=== PATIENT | female | born 1945 | race Caucasian/White ===

== ENCOUNTER 2019-04-02 11:35 | Inpatient (IN) | payer MEDICARE ==
[2019-04-02] MEDS ORDERED: Magnesium 2 GM/50 ML BAG (IN WATER) ONE (12:05)
[2019-04-02] MEDS ORDERED: Senokot S 8.6-50 MG TAB PO PRN (12:34)
[2019-04-02] MEDS ORDERED: Acetaminophen 325 MG TAB PO PRN (12:34)
[2019-04-02] MEDS ORDERED: Calcium Carbonate 500 MG ChewTAB PO PRN (12:34)
[2019-04-02] MEDS ORDERED: Guaifenesin DM 100-10/5 ML UDCUP PO PRN (12:34)
[2019-04-02] MEDS ORDERED: Bisacodyl 10 MG SUPP PR PRN (12:34)
--- NOTE | 2019-04-02 13:09 | HP ---
REASON FOR ADMISSION: Chronic obstructive pulmonary disease exacerbation, severe hyponatremia, and generalized weakness. HISTORY OF PRESENTING ILLNESS: The patient gives history of feeling weak from last one week or so. She has also developed shortness of breath which has been progressively getting worse from one week. This morning when she got up, she felt very weak and bad. She had wheezing in the morning. She could not eat at all. She has not vomited, but has severe loss for appetite. The patient says she had gone to see Dr. Barillas, last week for similar symptoms and got a shot of steroids in her office along with Bactrim. The patient says this has not helped much. PAST MEDICAL AND SURGICAL HISTORY: History of COPD, dyslipidemia, depression, cataract surgery, cholecystectomy, tubal ligation, left arm ORIF, gastroesophageal reflux disease, prior colonoscopy with removal of tubular polyps, and tobacco abuse. CURRENT MEDICATIONS: The patient takes, 1. Nexium 40 mg p.o. daily. 2. Albuterol nebulizer q.6 hourly p.r.n. 3. Lisinopril 20 mg p.o. daily. 4. Aspirin 81 mg p.o. daily. 5. Escitalopram 10 mg daily. 6. Atorvastatin 20 mg daily. 7. Bactrim Double Strength one tablet twice daily from 03/27/2019. 8. Anoro Ellipta inhaler daily. ALLERGIES: ALLERGIC TO CODEINE AND PENICILLIN. PERSONAL HISTORY: Smokes one and half pack daily. Does not abuse alcohol or drugs. Lives with her son and [id number]. FAMILY HISTORY: Mother of emphysema and its complications at the age of 75. Father lived up to 93 and of natural causes. CODE STATUS: Full. Power of racing secretary and handicapper is her daughter, Ms. Adhikari. Number to reach Ms. Adhikari is #[phone]. REVIEW OF SYSTEMS: CONSTITUTIONAL: Negative for weight loss or gain, ability to conduct usual activities. SKIN: Negative for rash, itching. EYES: Negative for double vision, pain. ENT/MOUTH: Negative for nose bleeding, neck stiffness, pain, tenderness. CARDIOVASCULAR: Negative for palpitations, dyspnea on exertion, orthopnea. RESPIRATORY: Negative for shortness of breath, wheezing, cough, hemoptysis, fever or night sweats. GASTROINTESTINAL: Negative for poor appetite, abdominal pain, heartburn, nausea , vomiting, constipation, or diarrhea. GENITOURINARY: Negative for urgency, frequency, dysuria, nocturia. MUSCULOSKELETAL: Negative for pain, swelling. NEUROLOGIC/PSYCHIATRIC: Negative for anxiety, depression. ALLERGY/IMMUNOLOGIC: Negative for skin rash, bleeding tendency. PHYSICAL EXAMINATION: GENERAL: The patient is a 74-year-old female, who is currently not in acute distress at present after receiving multiple nebulization at [facility] and here. VITAL SIGNS: Blood pressure on arrival at [facility] was 184/118, currently 136/ 92, pulse 72 per minute, respiratory rate 20 per minute, temperature 98.3 degrees Fahrenheit, and was initially saturating at 84% on room air and is currently 94 % on 2 L nasal cannula. NECK: Supple. No elevated JVD. HEENT: Eyes; extraocular muscles are intact. Pupils are reacting to light. Oral cavity, mucous membranes are moist. No exudates or congestion. CARDIOVASCULAR SYSTEM: S1 and S2 heard. Regular rhythm. RESPIRATORY SYSTEM: Air entry, 1+ bilateral. Scattered wheezes plus bilateral. ABDOMEN: Soft. Bowel sounds heard. No tenderness, rigidity, or guarding. EXTREMITIES: No peripheral edema or calf tenderness. VASCULAR SYSTEM: Peripheral pulses 1+ bilateral. No ischemic ulcerations or gangrene. CENTRAL NERVOUS SYSTEM: No gross focal deficits noted. The patient is alert, awake, and oriented well. PSYCHIATRIC SYSTEM: The patient's mood is euthymic. No hallucinations or delusions. LABORATORY DATA: EKG done shows normal sinus rhythm at 80 beats per minute, signs of LVH seen. White count of 6, H and H of 13 and 41, platelet count 239, MCV is 81 with 70% neutrophils. Sodium 118, potassium 5.9, chloride 83, serum bicarb is 24, BUN 11, creatinine 0.9, serum glucose 96. Liver enzymes within normal limits. Albumin is 4.5. Troponin I 0.02. BNP 96. Chest x-ray read by Radiology shows mild cardiomegaly. No lobar consolidation or pneumothorax or effusions. CLINICAL IMPRESSION AND PLAN: The patient will be admitted to medical floor for chronic obstructive pulmonary disease exacerbation, severe hyponatremia with generalized weakness. She will be on DuoNeb and steroids along with empiric Levaquin. We will obtain serum and urine osmolalities, urine electrolytes, TSH, uric acid, and a CT chest without contrast to rule out mass in view of hyponatremia and heavy smoking. We will also consult Dr. Tate, who is on-call for Nephrology for severe hyponatremia. We will continue aspirin, Lipitor, escitalopram, Anoro Ellipta, and lisinopril as before. If her hyponatremia gets worse, we will discontinue her escitalopram. We will also give her Ensure one can three times daily. We will request pulmonary consultation depending on her progress here. Job ID: [id number] MTDD
[2019-04-02] MEDS ORDERED: methylPREDNISolone Sod Succ 40 MG VIAL IVP SCH (14:00)
--- NOTE | 2019-04-02 14:43 | CT ---
CT OF THE CHEST WITHOUT CONTRAST: COMPARISON: None. HISTORY: COPD exacerbation with shortness of breath. Heavy smoker. Hyponatremia. TECHNIQUE: Multiple contiguous axial images were obtained in a CT of the chest without contrast. Coronal reform ats were performed. FINDINGS: Atelectasis is seen in the right middle lobe. No focal mass is seen. No suspicious infiltrates are seen. No pneumothorax or pleural effusion is seen. The heart is at upper limits of normal in size. Calcifications are seen in the coronary arteries and aorta. No hilar or mediastinal lymphadenopathy appreciated on this limited noncontrast examination. The patient is status post cholecystectomy. The visualized subdiaphragmatic structures are unremarka ble. Degenerative changes are seen in the spine. The chest wall soft tissues are unremarkable. IMPRESSION: Right middle lobe atelectasis. POS: [facility]
[2019-04-02 14:53] LABS: Thyroid Stimulating Hormone 0.5851 uIU/mL (0.35-4.94)
[2019-04-02 16:58] VITALS: BMI 31.6
[2019-04-02] MEDS: methylPREDNISolone Sod Succ 40 MG VIAL IVP SCH (17:08)
[2019-04-02 17:14] LABS: Potassium, Urine 30.6 mmol/L
[2019-04-02 18:19] LABS: Anion Gap 13 mmol/L (10-20); BUN (Urea Nitrogen) 13 mg/dL (9.8-20.1); Calc. Creatinine Clearance 81 mL/min (70-130); Carbon Dioxide 22 mmol/L (23-31); Chloride 85 mmol/L (98-107); Estimated GFR-MDRD 62; Glucose 141 mg/dL (83-110); Potassium 5.2 mmol/L (3.5-5.1)
[2019-04-02 18:23] LABS: Troponin I Less than 0.010 ng/mL (< 0.028)
[2019-04-02 18:25] LABS: Sodium 115 mmol/L (136-145)
--- NOTE | 2019-04-02 19:07 | CON ---
DATE OF CONSULTATION: 04/02/2019 CONSULTING PHYSICIAN: Jesusita Godwin MD. REASON FOR CONSULTATION: Hyponatremia and hyperkalemia. HISTORY OF PRESENT ILLNESS: A 74-year-old female with COPD, on home oxygen, who continues to smoke, who presented to [place] [facility] due to worsening shortness of breath as well as left-sided chest pain. The patient reported worsening shortness of breath and generalized weakness as well as ill feeling, multiple episodes of emesis, and left-sided chest pain, which resolved by the time she presented to the [place] [facility]. The patient was treated with DuoNeb and IV fluids. Further evaluation showed hyperkalemia and hyponatremia, and she was subsequently transferred over here through the ER for further evaluation and treatment. Initial troponin done at [facility] was unremarkable, and EKG showed normal sinus rhythm with no obvious ischemic changes. The patient reported having several episodes of emesis about 6 to 7 times yesterday and also had left-sided chest pain last night, which has resolved. She also complained of diffuse abdominal pain yesterday, which has also resolved at this time. Of note, the patient was seen by the primary care physician on March 27, for respiratory problem, thought to be COPD exacerbation and was treated with steroid shot followed by Bactrim, which she has been taking since then until prior to presentation. She denied diarrheal illness or leg swelling, but admitted to palpitation and some dysuria. She also reported body aches and pains, especially both thighs. In the ER here, the patient was further evaluated with a repeat EKG, which again was negative for features of hyperkalemia or ischemic changes. PAST MEDICAL HISTORY: 1. Chronic respiratory failure, on home oxygen. 2. COPD. 3. Dyslipidemia. 4. Depression. 5. Gastroesophageal reflux disease. 6. Chronic tobacco abuse disorder. PAST SURGICAL HISTORY: 1. Cholecystectomy. 2. Tubal ligation. 3. Left wrist open reduction and internal fixation. 4. Cataract surgery. 5. Prior colonoscopy with tubular polyps removal. FAMILY HISTORY: Mother of emphysema. Father also had multiple medical problems, which she does not really know, but he at age 93. SOCIAL HISTORY: The patient lives with son and [id number]. She smokes a pack and a half daily since age 14. Denies alcohol or recreational drug use. ALLERGIES: 1. CODEINE. 2. PENICILLIN. MEDICATIONS: Prior to hospital medications: 1. Lipitor 20 mg p.o. daily. 2. Nexium 40 mg p.o. daily. 3. Mylanta 125 mg daily p.r.n. 4. Albuterol sulfate 2.5 mg/3 mL nebulization q.4 p.r.n. for shortness of breath. 5. Lexapro 10 mg p.o. daily. 6. Lisinopril 2.5 mg p.o. daily. 7. Anoro 62.5 mcg/25 mcg 1 inhalation daily. 8. Bactrim 1 tablet daily. REVIEW OF SYSTEMS: A 12-point review of systems performed was negative other than pertinent positives and negatives included in the history of present illness. PHYSICAL EXAMINATION: VITAL SIGNS: Most current vitals showed temperature 98.5, pulse 87, respiratory rate 22, SpO2 of 97 on 2 L nasal cannula, blood pressure is 158/76. GENERAL: Elderly female, fatigued, in mild respiratory distress. Afebrile. Anicteric. Acyanotic. HEENT: Normocephalic and atraumatic. Pupils are equal and reacting to light. Lips are dry with some excoriations. Tongue is moist. NECK: Supple and nontender with full range of motion. No obvious masses or lymphadenopathy appreciated. CARDIOVASCULAR: Regular rhythm and rate with normal heart sounds 1 and 2. No obvious murmur was appreciated. RESPIRATORY: Fair air entry bilaterally with harsh breath sounds as well as scattered transmitted sounds. Few scattered rhonchi were appreciated. Work of breathing is mildly increased. GI: Abdomen is full, soft, nontender, and nondistended with normal bowel sounds. EXTREMITIES: Grossly normal looking, atraumatic, with no obvious edema, erythema, or cyanosis. NEUROLOGIC: Conscious and alert, oriented x3 with appropriate mental status. Cranial nerves 2 through 12 are intact. The patient moves all extremities. PSYCHIATRIC: The patient has normal affect with euthymic mood. There are no hallucinations. She seems cooperative with appropriate mental status. DIAGNOSTIC DATA: CBC performed today at [facility] showed WBC count of 6.7, hemoglobin of 13.3, MCV of 81.8, and platelet of 239. CMP performed at [facility] at 08:25 a.m., showed sodium 118, potassium 5.9, chloride 83, CO2 of 24, anion gap 17, BUN 11, creatinine 0.94, glucose 96, calcium 9.5, total bilirubin 0.5, AST 32, ALT 20, alkaline phosphatase 83, total protein 7.5, albumin 4.5, globulin 3.0. Lactic acid 0.7. Uric acid 5.6. BNP 96.6. TSH 0.585. Initial troponin at [facility] was 0.022. Urinalysis showed yellow urine with pH of 6.0; specific gravity of 1.015; trace protein, ketone, blood, small bilirubin, and leukocyte esterase. Nitrites and glucose were negative. Microscopy showed 0 to 3 rbc's and wbc's as well as squamous cells with rare bacteria. Urine sodium was 32, and urine potassium 30.6. EKG: Initial EKG performed at [facility] showed normal sinus rhythm with rate of 62 with no ischemic changes. Features of LVH were noted. Repeat EKG here showed normal sinus rhythm with rate of 80 and no ischemic changes. Again, LVH criteria were noted. Chest x-ray performed earlier today showed expanded lungs without lobar consolidation, pneumothorax, russell pneumonia, edema, or pleural effusion. CT scan of the chest without contrast showed right middle lobe atelectasis. Again, no pneumothorax or pleural effusion was noted. ASSESSMENT: 1. Moderate hyponatremia: Etiology is unclear. The patient with chronic long-standing COPD is at increased risk of syndrome of inappropriate antidiuretic hormone secretion. The patient also may have appropriate ADH secretion in the face of volume depletion given recent poor oral intake and emesis. Review of medical record showed that the patient had normal sodium in April 2018. There is no recent BMP available at this time. There is no overt neurological deficit or symptom. 2. Hyperkalemia: This most likely is related to medication. The patient is on lisinopril and recently started on Bactrim. EKG was negative for acute changes related to hyperkalemia. 3. Volume status: The patient seems euvolemic. 4. [id number] COPD: Deferred to primary attending. 5. Chronic tobacco abuse disorder. 6. Hypertension: Control is suboptimal. PLAN: 1. We get repeat BMP. 2. We will also get urine osmolality as well as serum osmolality and urine sodium. 3. We will hold lisinopril at this time. 4. If repeat BMP showed hyperkalemia, it will be addressed medically with Kayexalate. 5. Given the patient received some normal saline, we will await repeat BMP to decide on the course of action for hyponatremia given that the patient is asymptomatic at this time and there is no immediate need of correction. Many thanks for involving us in the care of this patient. We will follow along with you. Further recommendation to follow depending on hospital course. Addendum Repeat BMP reviewed. Showed acute drop in serum sodium from 118 to 115. K is down to 5.2 Plasma osmolality came back low at 144. Impression. 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 Acute drop in sodium being due to NS infusion recieved earlier. Plan Start fluid restriction. Give 1oo cc of 3% Saline. Recheck K in the morning. Job ID: [id number] MTDD
[2019-04-02] MEDS: Famotidine 20 MG TAB PO SCH (20:08)
[2019-04-02] MEDS ORDERED: Sodium Chloride 3% 100 ML IVPB SCH (22:00)
[2019-04-03] MEDS: methylPREDNISolone Sod Succ 40 MG VIAL IVP SCH ×3 (01:37→18:46)
[2019-04-03 05:14] LABS: #Lymphocytes 0.7 thou/uL (1.20-3.40); #Monocytes 0.2 thou/uL (0.11-0.59); %Basophils 0.3 % (0.0-1.0); %Eosinophils 0.1 % (0.0-10.0); %Lymphocytes 11.2 % (21.0-51.0); %Monocytes 3.5 % (0.0-10.0); %Neutrophils 84.8 % (42.0-75.0); Hemoglobin 12.4 g/dL (12.0-16.0); Mean Corpuscular HGB CONC 32.5 g/dL (32.0-36.0); Mean Corpuscular Hemoglobin 27.1 pg (27.0-31.0); Mean Corpuscular Volume 83.3 fL (78.0-98.0); Mean Platelet Volume 6.9 fL (7.4-10.4); Platelet Count 221 thou/uL (130-400); Red Blood Cell (RBC) Count 4.58 mill/uL (4.20-5.40); White Blood Cell (WBC) Count 5.9 thou/uL (4.8-10.8)
[2019-04-03 05:23] LABS: Potassium 5.5 mmol/L (3.5-5.1)
[2019-04-03 05:24] LABS: Anion Gap 15 mmol/L (10-20); BUN (Urea Nitrogen) 11 mg/dL (9.8-20.1); Calc. Creatinine Clearance 88 mL/min (70-130); Calcium 9.1 mg/dL (7.8-10.44); Carbon Dioxide 20 mmol/L (23-31); Chloride 88 mmol/L (98-107); Estimated GFR-MDRD 68; Glucose 130 mg/dL (83-110)
[2019-04-03 05:28] LABS: Sodium 117 mmol/L (136-145)
[2019-04-03] MEDS ORDERED: Lisinopril 2.5 MG TAB PO SCH (09:00)
[2019-04-03] MEDS: Amlodipine 5 MG TAB PO SCH (09:06)
[2019-04-03] MEDS: Famotidine 20 MG TAB PO SCH ×2 (09:06→21:28)
[2019-04-03] MEDS: Aspirin Chewable 81 MG TAB PO SCH (09:06)
[2019-04-03] MEDS: Atorvastatin Calcium 20 MG TAB PO SCH (09:06)
[2019-04-03] MEDS: Escitalopram Oxalate 10 mg Tablet PO SCH (09:06)
[2019-04-03] MEDS: Enoxaparin Sodium 40 MG/0.4 ML SYRINGE SC SCH (09:06)
--- NOTE | 2019-04-03 11:56 | PDOC.PN ---
- Subjective Encounter Start Date: 04/03/19 Encounter Start Time: 11:10 Subjective: Patient reports some improvement in wheezing and shortness of breath. No -: chest pain currently. Still very weak. - Objective Resuscitation Status - Order Detail: 04/02/19 12:28 Resuscitation Status Routine Resuscitation Status: FULL: Full Resuscitation MAR Reviewed: Yes Vital Signs & Weight: Vital Signs (12 hours) Temp Pulse Resp BP BP Pulse Ox 04/03/19 08:00 98.6 F 90 18 126/63 93 L 04/03/19 07:13 87 16 92 L 04/03/19 04:00 98.2 F 87 20 155/53 H 99 04/03/19 01:00 87 16 99 04/03/19 00:00 98.3 F 85 20 168/64 H 99 Weight Weight 202 lb I&O: 04/02/19 04/03/19 04/04/19 06:59 06:59 06:59 Intake Total 1650.5 Balance 1650.5 Result Diagrams: 04/03/19 04:15 04/03/19 13:59 Phys Exam - Physical Examination Constitutional: NAD HEENT: moist MMs Respiratory: no rales, no rhonchi scattered wheezing, mildly increased WOB Cardiovascular: RRR, no significant murmur Gastrointestinal: soft, positive bowel sounds Musculoskeletal: no edema Psychiatric: normal affect, A&O x 3 Dx/Plan (1) COPD with exacerbation Code(s): J44.1 - CHRONIC OBSTRUCTIVE PULMONARY DISEASE W (ACUTE) EXACERBATION Status: Acute Comment: on steroids, nebs, Levaquin since 04/02/19 (2) SIADH (syndrome of inappropriate ADH production) Status: Acute Comment: severe hyponatremia, 117 currently, Dr. Tate nephrology following, fluid restriction, single dose hypertonic saline last night (3) Hyperkalemia Code(s): E87.5 - HYPERKALEMIA Status: Acute Comment: persistent, dose of Kayexelate given this AM by nephrology (4) Depression Code(s): F32.9 - MAJOR DEPRESSIVE DISORDER, SINGLE EPISODE, UNSPECIFIED Status : Chronic (5) GERD (gastroesophageal reflux disease) Code(s): K21.9 - GASTRO-ESOPHAGEAL REFLUX DISEASE WITHOUT ESOPHAGITIS Status: Chronic Comment: on famotidine BID - Plan cont current plan of care, continue antibiotics, respiratory therapy, out of bed /ambulate, DVT proph w/SCDs * . - Discharge Day Encounter end time: 11:25
[2019-04-03 14:53] LABS: Anion Gap 13 mmol/L (10-20); BUN (Urea Nitrogen) 17 mg/dL (9.8-20.1); Calc. Creatinine Clearance 54 mL/min (70-130); Calcium 9.5 mg/dL (7.8-10.44); Carbon Dioxide 25 mmol/L (23-31); Chloride 89 mmol/L (98-107); Estimated GFR-MDRD 39; Glucose 93 mg/dL (83-110); Potassium 5.1 mmol/L (3.5-5.1); Sodium 122 mmol/L (136-145)
--- NOTE | 2019-04-03 20:25 | PRG ---
DATE OF SERVICE: 04/03/2019 SUBJECTIVE: A 74-year-old female being followed up for hyperkalemia and moderate hyponatremia. The patient on presentation had sodium of 118, which dropped down to 115 following treatment with normal saline. The patient also was found to have potassium of 5.9 on presentation. The patient reports feeling better, but also still has generalized weakness. Shortness of breath has improved. Denied fever, chest pain, nausea, vomiting, or dysuria. OBJECTIVE: VITAL SIGNS: Temperature 98.2, pulse 87, respiratory rate 20, SpO2 99% on 2 L nasal cannula, blood pressure is 155/53. GENERAL: Elderly female, in no obvious distress. Fatigued, but afebrile and anicteric. HEENT: Normocephalic, atraumatic. Oral mucosa is moist. CARDIOVASCULAR: Regular rhythm and rate with normal heart sounds 1 and 2. RESPIRATORY: Fair air entry bilateral with some transmitted sounds. No obvious rhonchi or crackle was appreciated. Work of breathing is not increased. GI: Full, soft, nontender, nondistended with normal bowel sounds. EXTREMITIES: Grossly normal looking, atraumatic with no edema, erythema, or cyanosis. NEUROLOGIC: Conscious, alert, oriented x3 with appropriate mental status. Cranial nerves 2 through 12 are intact. The patient moves all extremities. DIAGNOSTIC DATA: BMP today showed sodium 117, potassium 5.5, chloride 88, CO2 of 20, BUN 11, creatinine 0.82, glucose 130, calcium 9.1. ASSESSMENT AND PLAN: 1. Hyponatremia: This is thought to be syndrome of inappropriate ADH secretion. The patient has chronic obstructive pulmonary disease and urine osmolality was low at 244 with urine osmolality of 291. The patient also is on Lexapro and has chronic obstructive pulmonary disease. Also with normal saline therapy, serum sodium dropped acutely from 118 to 115. The patient was treated with hypertonic solution as well as fluid restriction with improvement to 117 this morning. We will continue water restriction and monitor electrolytes. 2. Hyperkalemia: This was felt to be due to medications. The patient still was on lisinopril, was started back on Bactrim for chronic obstructive pulmonary disease exacerbation by PCP. Potassium did come down to 5.2 from 5.9, but this morning it is up to 5.5. We will give 30 g of Kayexalate and repeat BMP in 6 hours. 3. Chronic obstructive pulmonary disease exacerbation. Treatment as per primary attending. 4. Physical deconditioning: We defer to primary attending for physical rehabilitation. 5. We will follow electrolytes and renal function and provide further recommendation as needed. Job ID: [id number]
[2019-04-03] MEDS ORDERED: Melatonin 3 MG TAB PO PRN (21:00)
[2019-04-03] MEDS: Zolpidem Tartrate 5 MG TAB PO PRN (21:29)
[2019-04-03] MEDS: Sodium Chloride 0.9% 1,000 ML IV SCH (21:31)
[2019-04-04] MEDS: methylPREDNISolone Sod Succ 40 MG VIAL IVP SCH ×3 (02:55→18:12)
[2019-04-04 05:58] LABS: Anion Gap 17 mmol/L (10-20); BUN (Urea Nitrogen) 17 mg/dL (9.8-20.1); Calc. Creatinine Clearance 75 mL/min (70-130); Calcium 9.1 mg/dL (7.8-10.44); Carbon Dioxide 18 mmol/L (23-31); Chloride 93 mmol/L (98-107); Estimated GFR-MDRD 56; Glucose 108 mg/dL (83-110); Sodium 122 mmol/L (136-145)
[2019-04-04] MEDS: Atorvastatin Calcium 20 MG TAB PO SCH (09:32)
[2019-04-04] MEDS: Escitalopram Oxalate 10 mg Tablet PO SCH (09:32)
[2019-04-04] MEDS: Enoxaparin Sodium 40 MG/0.4 ML SYRINGE SC SCH (09:32)
[2019-04-04] MEDS: Amlodipine 5 MG TAB PO SCH (09:32)
[2019-04-04] MEDS: Famotidine 20 MG TAB PO SCH ×2 (09:32→22:02)
[2019-04-04] MEDS: Aspirin Chewable 81 MG TAB PO SCH (09:32)
[2019-04-04] MEDS: Sodium Bicarbonate Tab 325 MG TAB PO SCH ×3 (09:32→22:02)
--- NOTE | 2019-04-04 11:00 | PDOC.PN ---
- Subjective Encounter Start Date: 04/04/19 Encounter Start Time: 10:45 Subjective: f/u for hyponatremia secondary to SIADH on low-volume IVF's. Feels -: weak overall but attempting to do light exercises in room. - Objective Resuscitation Status - Order Detail: 04/02/19 12:28 Resuscitation Status Routine Resuscitation Status: FULL: Full Resuscitation MAR Reviewed: Yes Vital Signs & Weight: Vital Signs (12 hours) Temp Pulse Resp BP BP Pulse Ox 04/04/19 07:41 98.4 F 97 20 159/68 H 92 L 04/04/19 06:26 94 L 04/04/19 06:25 91 18 94 L 04/04/19 04:19 98.3 F 95 20 161/71 H 94 L 04/03/19 23:54 98.0 F 83 20 130/65 97 Weight Admit Weight 202 lb Weight 202 lb I&O: 04/03/19 04/04/19 04/05/19 06:59 06:59 06:59 Intake Total 1650.5 580 Balance 1650.5 580 Result Diagrams: 04/03/19 04:15 04/04/19 05:03 Additional Labs: Microbiology 04/02/19 13:37 Venous blood - Right Arm Blood Culture - Preliminary Specimen has been received and culture in progress. No Growth to date. 04/02/19 13:37 Venous blood - Left Arm Blood Culture - Preliminary Specimen has been received and culture in progress. No Growth to date. Laboratory Tests 04/02/19 04/03/19 04/03/19 17:41 04:15 13:59 Sodium 115 L* 117 L* 122 L Potassium 5.2 H 5.5 H 5.1 Creatinine 0.89 0.82 1.33 H Phys Exam - Physical Examination Constitutional: NAD HEENT: PERRLA, sclera anicteric, oral pharynx no lesions Neck: no nodes, no JVD, supple, full ROM diminished in bases Respiratory: no wheezing S1, S2 Cardiovascular: RRR, no significant murmur, no rub, gallop Gastrointestinal: soft, non-tender, no distention, positive bowel sounds Musculoskeletal: no edema, pulses present Neurological: normal sensation, moves all 4 limbs Psychiatric: A&O x 3 Skin: normal turgor, cap refill <2 seconds Dx/Plan (1) Hyponatremia Code(s): E87.1 - HYPO-OSMOLALITY AND HYPONATREMIA Status: Acute Comment: Likely multifactorial, improving, continue low-voluem IVF's, serial Na+ (2) SIADH (syndrome of inappropriate ADH production) Status: Acute Comment: severe hyponatremia, 117 currently, Dr. Tate nephrology following, fluid restriction, single dose hypertonic saline last night (3) Hyperkalemia Code(s): E87.5 - HYPERKALEMIA Status: Acute Comment: persistent, dose of Kayexelate given this AM by nephrology, monitor closely (4) COPD (chronic obstructive pulmonary disease) Status: Chronic Comment: No exacerbation, continue pulmonary support, O2 supplementation (5) Chronic respiratory failure with hypoxia Code(s): J96.11 - CHRONIC RESPIRATORY FAILURE WITH HYPOXIA Status: Chronic Comment: Continue low-flow O2 via NC, see above - Plan PT/OT, social sciences instructor, respiratory therapy, out of bed/ambulate, DVT proph w/ SCDs Stable currently -: Continue low-volume IVF's -: Kayexalate prn -: OOB/PT -: D/C Teddy * AM lab: BMP
--- NOTE | 2019-04-04 15:08 | PRG ---
DATE OF SERVICE: 04/04/2019 SUBJECTIVE: A 74-year-old female being followed up for hyponatremia and hyperkalemia. The patient reports feeling better. Hyponatremia was improving with fluid restriction, but the patient, however, developed acute kidney injury, hence was started on IV normal saline. Denied nausea, vomiting, abdominal pain, chest pain, or palpitation. Shortness of breath has improved. OBJECTIVE: VITAL SIGNS: Temperature 98.4, pulse 97, respiratory rate 20, SpO2 of 92 on 1 L nasal cannula, blood pressure is 159/68. GENERAL: Elderly female, in no obvious distress. Afebrile. Anicteric. HEENT: Normocephalic, atraumatic. Oral mucosa is moist. CARDIOVASCULAR: Regular rhythm and rate with normal heart sounds one and two. RESPIRATORY: Diminished air entry in all lung zones with few transmitted sounds, but no obvious crackle or rhonchi or use of accessory muscles. GI: Abdomen is full, soft, nontender, nondistended with normal bowel sounds. EXTREMITIES: Grossly normal looking, atraumatic with no edema, erythema, or cyanosis. NEUROLOGIC: Conscious, alert, oriented x3 with appropriate mental status. LABORATORY DATA: BMP today showed sodium 122, potassium 6.0, chloride 93, CO2 of 18, anion gap 17, BUN 17, creatinine 0.97, glucose 108, calcium 9.1. ASSESSMENT AND PLAN: 1. Acute kidney injury: Thought to be hemodynamically mediated given poor oral intake. Volume depletion may be responsible. Creatinine is trending down already with normal saline. We will continue the same and monitor renal function as well as serum sodium. 2. Hyperkalemia: This resolved last night, but overnight the patient developed hyperkalemia with potassium of 6.0. Etiology is unclear, but worsening metabolic acidosis may be responsible. We will treat with Kayexalate. We will also start the patient on sodium bicarbonate and recheck electrolytes. 3. Hyponatremia: Increasing and suspected. Sodium has gone up from 117 to 122 in 9 hours, hence was slowed down with commencement of normal saline, which was also to help with acute kidney injury. There is no neurological deficit and the patient remained hemodynamically neurologically stable. We will continue fluid restriction and monitor electrolytes. 4. High anion gap metabolic acidosis: Related to acute infection without contribution from normal saline infusion and acute kidney injury. We will start sodium bicarbonate and recheck. 5. Tobacco abuse disorder. We will start the patient on nicotine patch. 6. Syndrome of inappropriate antidiuretic hormone secretion: Continue fluid restriction and monitor electrolytes. This is thought to be related to COPD. CT scan without contrast did not show any suspicious mass or nodule. 7. Further recommendation to follow on review of ordered repeat blood work. Job ID: [id number]
--- NOTE | 2019-04-04 15:57 | PQF ---
MARLINE HASSAN RACHID ROLLINS DO [id number] B- [id number] CLINICAL DOCUMENTATION IMPROVEMENT CLARIFICATION FORM: ICD-10 Updated PLEASE DO AN ADDENDUM TO THE PROGRESS NOTE WITH ANY DOCUMENTATION UPDATES OR ADDITIONS AND CARRY THROUGH TO DC SUMMARY. THANK YOU. DATE: 04/04/19 ,04/05/19 ATTN:DR. Tacho ROLLINS Please exercise your independent, professional judgment in responding to the clarification form. Clinical indicators are provided on the bottom of this form for your review. Please check appropriate box(s): [ ] Acute On Chronic Respiratory Failure: [ ] with Hypoxia [ ] with Hypercapnia [ x ] Chronic Respiratory Failure only [ x ] with Hypoxia [ ] with Hypercapnia [ ] Other diagnosis [ ] Unable to determine In addition, please specify: Present on Admission (POA): [ x ] Yes [ ] No [ ] Unable to determine For continuity of documentation, please document condition throughout progress notes and discharge summary. Thank You. CLINICAL INDICATORS - SIGNS / SYMPTOMS / LABS 04/02 ED: INITIALLY SATURATING AT 84% ON ROOM AIR, O2 SATS 88-98% 2L/NC, RESP RATE 19-23 04/02 CONSULT (OBI) : PMI 1) CHRONIC RESP FAILURE, ON HOME OXYGEN 04/04 PN ( AYO) DX/PLAN : 5). CHRONIC RESPIRATORY FAILURE W HYPOXIA RISK: CURRENT TOBACCO ABUSE( H & P ) JAGADEESHAN COPD EXACERBATION JAGADEESHAN HOME O2 USE ( CONSULT) OBI TREATMENTS: SUPPLEMENTAL OXYGEN (04/02-PRESENT) NEB TREATMENTS (04/02-PRESENT) CONTINUOUS O2 MONITORING THANK YOU! ANASTASIA (This form is maintained as a part of the permanent medical record) 2014 [employer], [employer]. All Rights Reserved [email or web address] [email or web address] [phone] MTDD
[2019-04-04] MEDS: Sodium Chloride 0.9% 1,000 ML IV SCH ×2 (17:18→18:17)
[2019-04-04 17:45] LABS: Calcium 9.3 mg/dL (7.8-10.44); Chloride 94 mmol/L (98-107); Potassium 4.4 mmol/L (3.5-5.1); Sodium 128 mmol/L (136-145)
[2019-04-04 17:46] LABS: Glucose 122 mg/dL (83-110)
[2019-04-04 17:47] LABS: Anion Gap 13 mmol/L (10-20); Carbon Dioxide 25 mmol/L (23-31)
[2019-04-04 17:49] LABS: Calc. Creatinine Clearance 68 mL/min (70-130); Estimated GFR-MDRD 51
[2019-04-04 17:50] LABS: BUN (Urea Nitrogen) 20 mg/dL (9.8-20.1)
[2019-04-04] MEDS: Zolpidem Tartrate 5 MG TAB PO PRN (22:02)
[2019-04-05] MEDS: methylPREDNISolone Sod Succ 40 MG VIAL IVP SCH ×3 (01:27→18:28)
[2019-04-05 06:31] LABS: Anion Gap 11 mmol/L (10-20); BUN (Urea Nitrogen) 15 mg/dL (9.8-20.1); Calc. Creatinine Clearance 88 mL/min (70-130); Calcium 9.2 mg/dL (7.8-10.44); Carbon Dioxide 30 mmol/L (23-31); Chloride 94 mmol/L (98-107); Estimated GFR-MDRD 68; Glucose 137 mg/dL (83-110); Potassium 4.7 mmol/L (3.5-5.1); Sodium 130 mmol/L (136-145)
[2019-04-05] MEDS: Aspirin Chewable 81 MG TAB PO SCH (08:50)
[2019-04-05] MEDS: Enoxaparin Sodium 40 MG/0.4 ML SYRINGE SC SCH (08:50)
[2019-04-05] MEDS: Amlodipine 5 MG TAB PO SCH (08:50)
[2019-04-05] MEDS: Famotidine 20 MG TAB PO SCH ×2 (08:50→20:34)
[2019-04-05] MEDS: Atorvastatin Calcium 20 MG TAB PO SCH (08:50)
[2019-04-05] MEDS: Escitalopram Oxalate 10 mg Tablet PO SCH (08:51)
[2019-04-05] MEDS: Nicotine 21 MG PATCH TD SCH (08:51)
--- NOTE | 2019-04-05 09:06 | PRG ---
DATE OF SERVICE: 04/05/2019 SUBJECTIVE: A 74-year-old female being followed up for hyponatremia and acute kidney injury. The patient was admitted for worsening shortness of breath and generalized weakness. Reports feeling better. Denied chest pain, nausea, vomiting. Oral intake is better, as mouth sore and oral pain has improved. OBJECTIVE: VITAL SIGNS: Temperature 98.8, pulse 87, respiratory rate 16, SpO2 of 95% on 2 L nasal cannula, blood pressure is 133/48. GENERAL: Elderly female, in no distress. Afebrile. Anicteric. Acyanotic. HEENT: Normocephalic, atraumatic. Pupils are reacting to light. Oral mucosa is moist. CARDIOVASCULAR: Regular rhythm and rate with normal heart sounds one and two. RESPIRATORY: Fair air entry bilaterally with prolonged expiration. No obvious crackle or rhonchi was appreciated. GASTROINTESTINAL: Full, soft, nontender, nondistended with normal bowel sounds. EXTREMITIES: Grossly normal-looking, atraumatic with no obvious edema, erythema, or cyanosis. NEUROLOGIC: Conscious, alert, oriented x3 with appropriate mental status. Cranial nerves 2 through 12 are intact. The patient is ambulant with walker. DIAGNOSTIC DATA: BMP today showed sodium 130, potassium 4.7, chloride 94, CO2 of 30, BUN 15, creatinine 0.82, glucose 137, calcium 9.2. ASSESSMENT: 1. Hyponatremia: from SIADH plus appropriate ADH secretion from volume contraction. The patient who was initially euvolemic, later developed acute kidney injury from poor oral intake related to mouth sores. Sodium is improved with both normal saline and fluid restriction . We will relax fluid restriction and discontinue IV fluid as the patient is taking more by mouth. 2. Acute kidney injury: Due to volume depletion. Resolved with IV fluid therapy. 3. Hyperkalemia: Due to metabolic acidosis and acute kidney injury. Resolved with IV fluid and correction of metabolic acidosis. 4. Metabolic acidosis: Resolved with sodium bicarbonate. We will discontinue sodium bicarbonate as CO2 is 30 to prevent metabolic alkalosis. 5. Repeat BMP in the morning. 6. Hypertension: Control is acceptable. Lisinopril was held due to hyperkalemia. The patient currently on amlodipine. We will consider transitioning the patient back to lisinopril on discharge. Job ID: [id number]
--- NOTE | 2019-04-05 15:56 | PDOC.PN ---
- Subjective Encounter Start Date: 04/05/19 Encounter Start Time: 15:50 Subjective: f/u for hyponatremia, SIADH on low-volume IVF's improving -: clinically. Feels better overall. Ambulating in room/hallways. - Objective Resuscitation Status - Order Detail: 04/02/19 12:28 Resuscitation Status Routine Resuscitation Status: FULL: Full Resuscitation MAR Reviewed: Yes Vital Signs & Weight: Vital Signs (12 hours) Temp Pulse Resp BP BP Pulse Ox 04/05/19 12:29 70 20 04/05/19 11:00 98.3 F 83 16 150/68 H 97 04/05/19 08:50 87 133/48 L 04/05/19 07:43 98.8 F 87 16 133/48 L 95 04/05/19 06:33 87 20 04/05/19 04:37 98.3 F 91 20 153/64 H 92 L Weight Admit Weight 202 lb Weight 202 lb I&O: 04/04/19 04/05/19 04/06/19 06:59 06:59 06:59 Intake Total 580 1300 Balance 580 1300 Result Diagrams: 04/03/19 04:15 04/05/19 05:56 Additional Labs: Microbiology 04/02/19 13:37 Venous blood - Right Arm Blood Culture - Preliminary Specimen has been received and culture in progress. No Growth to date. 04/02/19 13:37 Venous blood - Left Arm Blood Culture - Preliminary Specimen has been received and culture in progress. No Growth to date. Laboratory Tests 04/02/19 04/03/19 04/03/19 17:41 04:15 13:59 Sodium 115 L* 117 L* 122 L Potassium 5.2 H 5.5 H 5.1 Creatinine 0.89 0.82 1.33 H Radiology Reviewed by me: Yes (Echo - EF 55-60%, diast dysfunction) Phys Exam - Physical Examination Constitutional: NAD HEENT: PERRLA, sclera anicteric, oral pharynx no lesions Neck: no nodes, no JVD, supple, full ROM diminished in bases Respiratory: no wheezing S1, S2 Cardiovascular: RRR, no significant murmur, no rub, gallop Gastrointestinal: soft, non-tender, no distention, positive bowel sounds Musculoskeletal: no edema, pulses present Neurological: normal sensation, moves all 4 limbs Psychiatric: A&O x 3 Skin: normal turgor, cap refill <2 seconds Dx/Plan (1) Hyponatremia Code(s): E87.1 - HYPO-OSMOLALITY AND HYPONATREMIA Status: Acute Comment: Likely multifactorial, improving, fluid restriction 1.5L/24h, serial Na+ (2) SIADH (syndrome of inappropriate ADH production) Status: Acute Comment: severe hyponatremia, improved 130 (3) Hyperkalemia Code(s): E87.5 - HYPERKALEMIA Status: Acute Comment: Improved currently, serial monitoring (4) COPD (chronic obstructive pulmonary disease) Status: Chronic Comment: No exacerbation, continue pulmonary support, O2 supplementation (5) Chronic respiratory failure with hypoxia Code(s): J96.11 - CHRONIC RESPIRATORY FAILURE WITH HYPOXIA Status: Chronic Comment: Continue low-flow O2 via NC, see above - Plan PT/OT, clinical social work therapist, out of bed/ambulate, DVT proph w/SCDs Stable currently -: Continue fluid restriction -: OOB/ambulate -: Continue Solumedrol another 24h then d/c -: Bowel regimen with Senokot * AM lab: BMP * Likely home in 24h
[2019-04-05] MEDS: Zolpidem Tartrate 5 MG TAB PO PRN (20:36)
[2019-04-05] MEDS ORDERED: methylPREDNISolone Sod Succ 40 MG VIAL ONE (22:13)
[2019-04-06] MEDS: Enoxaparin Sodium 40 MG/0.4 ML SYRINGE SC SCH (10:04)
[2019-04-06] MEDS: methylPREDNISolone Sod Succ 40 MG VIAL IVP SCH (10:05)
[2019-04-06] MEDS: Amlodipine 5 MG TAB PO SCH (10:06)
[2019-04-06] MEDS: Famotidine 20 MG TAB PO SCH (10:06)
[2019-04-06] MEDS: Atorvastatin Calcium 20 MG TAB PO SCH (10:06)
[2019-04-06] MEDS: Escitalopram Oxalate 10 mg Tablet PO SCH (10:06)
[2019-04-06] MEDS: Aspirin Chewable 81 MG TAB PO SCH (10:07)
[2019-04-06] MEDS: Nicotine 21 MG PATCH TD SCH (10:07)
[2019-04-06 11:20] LABS: Potassium 4.8 mmol/L (3.5-5.1); Sodium 134 mmol/L (136-145)
[2019-04-06 11:21] LABS: BUN (Urea Nitrogen) 15 mg/dL (9.8-20.1); Calc. Creatinine Clearance 93 mL/min (70-130); Carbon Dioxide 35 mmol/L (23-31); Chloride 92 mmol/L (98-107); Estimated GFR-MDRD 72; Glucose 123 mg/dL (83-110)
[2019-04-06 11:22] LABS: Anion Gap 12 mmol/L (10-20); Calcium 9.6 mg/dL (7.8-10.44)
[2019-04-06 12:37] VITALS: BP 133/60; TEMP 98.1
--- NOTE | 2019-04-06 17:43 | PRG ---
DATE OF SERVICE: 04/06/2019 SUBJECTIVE: An elderly female admitted due to worsening shortness of breath. The patient also was found to have hyponatremia, for which nephrology consult was requested. The patient is clinically improved with better oral intake and resolution of nausea and vomiting. She is desirous of going home. No chest pain, palpitation, leg swelling, or dysuria. OBJECTIVE: VITAL SIGNS: Temperature 98.1, pulse 87, respiratory rate 14, SpO2 of 92 on 2 L nasal cannula, blood pressure 133/60. GENERAL: Elderly female in no obvious distress. Afebrile. Anicteric. Acyanotic. HEENT: Normocephalic, atraumatic. Oral mucosa is moist. CARDIOVASCULAR: Regular rhythm and rate with normal heart sounds 1 and 2. RESPIRATORY: Fair air entry bilaterally with few transmitted sounds. No obvious crackle or rhonchi was appreciated. GI: Full, soft, nontender, nondistended with normal bowel sounds. EXTREMITIES: Grossly normal looking atraumatic with no obvious edema, erythema, or cyanosis. NEUROLOGIC: Conscious, alert, oriented x3 with appropriate mental status. Cranial nerves 2 through 12 are intact. DIAGNOSTIC DATA: BMP showed sodium 134, potassium 4.8, chloride 92, CO2 of 35, BUN 15, creatinine 0.78, glucose 123, calcium 9.6. ASSESSMENT AND PLAN: 1. Hyponatremia: from both inappropriate ADH secretion and appropriate ADH secretion related to fluid volume depletion. The patient developed acute kidney injury which is resolved with gentle cautious IV fluid therapy. Oral intake has improved, fluid restriction was liberalized due to acute kidney injury. The patient is advised to continue fluid restriction at home and follow up with PCP. 2. Acute kidney injury: Related to volume depletion from poor oral intake. Resolved. 3. Hypertension: Control is acceptable. Anticipate transitioning back to lisinopril on discharge since hyperkalemia has resolved. 4. Hyperkalemia: Due to lisinopril and Bactrim. Resolved. 5. Chronic respiratory failure and chronic obstructive pulmonary disease: Treatment as per primary attending. 6. Disposition: The patient can be discharged from nephrology point of view. A close followup with PCP with repeat labs is recommended. Job ID: [id number]
--- NOTE | 2019-04-07 04:19 | DIS ---
DATE OF ADMISSION: 04/02/2019 DATE OF DISCHARGE: 04/06/2019 PRIMARY CARE PROVIDER: Yina Barillas, DO DISCHARGE DIAGNOSES: 1. Hyponatremia. 2. Hyperkalemia. 3. Chronic obstructive pulmonary disease exacerbation. 4. Acute kidney injury. 5. IADH. CONSULTATIONS DURING THIS HOSPITALIZATION: Nephrology, Dr. Tate. CONDITION OF PATIENT ON THE DAY OF DISCHARGE: Stable. I assessed Ms. Guerrero on the day of discharge. She denies any chest pain or shortness of breath. Vital signs are stable. S1 and S2 are heard, regular. Lungs are clear to auscultation bilaterally. FOLLOWUP: The patient is advised to follow up with primary care provider in 3 to 5 days. She is also advised to have her chem-7 checked in 3 to 5 days through primary care provider's office. She is also advised to check her blood pressure and heart rate 3 times a day and show the readings to her primary care provider. DISCHARGE MEDICATIONS: In addition to her pre-admission home medications as dictated by Dr. Godwin in his history and physical note dated April 02, 2019. She is being discharged home on nicotine patch 21 mg daily and oral prednisone taper. HOSPITAL COURSE: Ms. Guerrero is a pleasant 74-year-old lady who was admitted to [facility] on April 02, 2019, for hyponatremia and COPD exacerbation. Please refer to Dr. Godwin's history and physical note dated April 02, 2019, for further details. She was seen by Nephrology Service. She was diagnosed with SIADH. Sodium improved with fluid restriction. She also had 2D echocardiogram, which showed left ventricular ejection fraction of 55% to 60%, E /A flow reversal suggestive of diastolic dysfunction, mild mitral regurgitation, trace tricuspid regurgitation, and mild concentric left ventricular hypertrophy. Her lisinopril was held because of acute kidney injury. Renal function normalized, and lisinopril is being resumed at the time of discharge. She was treated with amlodipine while lisinopril was on hold. She improved clinically and is being discharged home in a stable condition. On the day of discharge, she has sodium 134, potassium 4.8, creatinine 0.78, and calcium 9.6. TSH was normal during this hospitalization. Many thanks for allowing me to participate in your patient's care. Please feel free to contact me with any questions or concerns. POST-DISCHARGE FOLLOWUP: With PCP. DISCHARGE DESTINATION: Home. TIME SPENT: Total amount of time spent coordinating this discharge: 32 minutes. Job ID: [id number] MTDJessica
--- NOTE | 2019-04-08 16:52 | EKG ---
Test Reason : COPD Blood Pressure : / mmHG Vent. Rate : 080 BPM Atrial Rate : 080 BPM P-R Int : 178 ms QRS Dur : 096 ms QT Int : 388 ms P-R-T Axes : 057 -32 046 degrees QTc Int : 447 ms Normal sinus rhythm Possible Left atrial enlargement Left axis deviation Left ventricular hypertrophy Abnormal ECG Confirmed by ANDREAS Dougherty, YOEL ([id number]), telegraph editor NOBLE RODGERS ([id number]) on 04/08/2019 4:52:01 PM Referred By: ANDREAS Confirmed By:YOEL JOHNS M.D.
== END 2019-04-06 12:37 | disposition home or self-care (01) | DRG 644 ==
LOC: ERS 11:35 → ERHOLD 12:54 → SURG B 14:37
PROVIDERS: ADMIT Internal Medicine; ATTEND Internal Medicine
DX: E22.2 Syndrome of inappropriate secretion of antidiuretic hormone (principal); J44.1 Chronic obstructive pulmonary disease with (acute) exacerbation; J96.11 Chronic respiratory failure with hypoxia; N17.9 Acute kidney failure, unspecified; E87.2 Acidosis; E78.5 Hyperlipidemia, unspecified; F32.9 Major depressive disorder, single episode, unspecified; K21.9 Gastro-esophageal reflux disease without esophagitis; F17.210 Nicotine dependence, cigarettes, uncomplicated; E87.5 Hyperkalemia; I08.1 Rheumatic disorders of both mitral and tricuspid valves; Z99.81 Dependence on supplemental oxygen; Z79.82 Long term (current) use of aspirin; Z98.51 Tubal ligation status; Z90.49 Acquired absence of other specified parts of digestive tract; Z79.899 Other long term (current) drug therapy; Z88.5 Allergy status to narcotic agent; Z88.0 Allergy status to penicillin
CPT/HCPCS: 36415; 71250; 80048; 82436; 83930; 83935; 84133; 84300; 84443; 84550; 85025; 93005; 93306; 94760; J1650; J1956; J2920; J3475; J7131; J7620

== ENCOUNTER 2019-04-09 12:38 | Observation (INO) | payer MEDICARE ==
[2019-04-09 14:44] LABS: Troponin I 0.031 ng/mL (< 0.028)
[2019-04-09] MEDS ORDERED: Senokot S 8.6-50 MG TAB PO PRN ×2 (15:04→18:54)
[2019-04-09] MEDS ORDERED: Acetaminophen 325 MG TAB PO PRN ×2 (15:04→18:54)
[2019-04-09] MEDS ORDERED: Nicotine 14 MG PATCH TD SCH ×2 (15:15→21:00)
[2019-04-09 18:04] VITALS: BMI 29.9
[2019-04-09 18:44] LABS: Troponin I 0.019 ng/mL (< 0.028)
[2019-04-09] MEDS ORDERED: Famotidine 20 MG TAB PO SCH ×2 (21:00)
[2019-04-10] MEDS ORDERED: Ondansetron PF 4 MG/2 ML Vial IVP PRN (00:42)
[2019-04-10] MEDS ORDERED: Acetaminophen 325 MG TAB PO PRN (00:42)
--- NOTE | 2019-04-10 01:06 | HP ---
This is MOO Bynum dictating a report for Tiago Hurtado DO. PRIMARY CARE PHYSICIAN: Dr. Barillas. CHIEF COMPLAINT: Chest pain. HISTORY OF PRESENT ILLNESS: Ms. Guerrero is a 74-year-old female who was evaluated in the emergency room in [place] for chest pain. Reports that she had chest pain earlier this morning and reports pain which she gets associated with her lung and actually the pain is left-sided chest. She was evaluated in [place] and sent to [facility] for admission. The patient was recently admitted to this hospital, discharged on 04/06/2019, for hyponatremia, hyperkalemia, chronic obstructive pulmonary disease, acute kidney injury, and IADH. She is currently on fluid restriction. She did have an echocardiogram which showed left ventricular ejection fraction of 55% to 60%. EA flow reversal suggestive of diastolic dysfunction, mild mitral regurgitation, trace tricuspid regurgitation, and mild concentric left ventricular hypertrophy. Initially on that visit, her sodium was 118, it improved and today it is 135. Potassium was elevated on 04/02 on previous admission at 5.9, but today it is 4.1. EKG in the emergency room shows a normal sinus rhythm, ST segments are normal, findings are similar to the old EKG. She was given ibuprofen and aspirin and sent over to [facility] for admission. Initial troponin was slightly in the indeterminate range at 0.029, subsequent one was 0.031, third one is undetectable. PAST MEDICAL HISTORY: COPD, dyslipidemia, depression, cataracts, reflux disease, polyps, tobacco abuse. PAST SURGICAL HISTORY: Cataract surgery, cholecystectomy, tubal ligation, left arm ORIF, colonoscopy. ALLERGIES: CODEINE AND PENICILLIN. HOME MEDICATIONS: 1. Aspirin 81 mg p.o. daily. 2. Atorvastatin 20 mg p.o. daily. 3. Prilosec 40 mg p.o. q.a.m. 4. Lisinopril 20 mg p.o. daily. 5. Lexapro 10 mg p.o. daily. 6. Anoro Ellipta 62.5/25 mcg 1 inhalation daily. PERSONAL HISTORY: She still smokes 1-1/2 packs a day. Does not abuse any alcohol or drugs. She lives with her son and [id number]. FAMILY HISTORY: Mother of emphysema. Father at 93 of natural causes. Code status is full. Power of traffic law attorney is her daughter, Babita. REVIEW OF SYSTEMS: CONSTITUTIONAL: The patient reports left-sided chest pain. She denied any shortness of breath, palpitations, or diaphoresis. All other systems are negative unless mentioned in the HPI. PHYSICAL EXAMINATION: VITAL SIGNS: Blood pressure 107/68, pulse is 83, respirations are 18, pO2 sats are 92% on 2 L of oxygen. The patient is oxygen dependent, uses 2 L at home. Reports her sats normally ranged from 90 to 92. GENERAL: The patient is in no apparent distress. She is alert and oriented to person, place, and time. She is able to complete sentences without being short of breath. HEENT: Head is atraumatic and normocephalic. Eyes; eyelids normal to inspection. Pupils are equally round and reactive to light. ENT; mouth exam is normal. Mucous membranes are moist. NECK: Trachea is midline. Normal range of motion. RESPIRATORY: Breath sounds are diminished at the bases. She is not moving a lot of air. CARDIOVASCULAR: Regular rate and rhythm. Heart sounds are normal. ABDOMEN: Nontender. Bowel sounds are heard. BACK: Normal range of motion. No tenderness. EXTREMITIES: Upper extremities; normal inspection, normal range of motion, radial pulses normal. Lower extremities; normal range of motion, strength is normal, sensation intact, pedal pulses normal. NEURO: The patient is oriented to person, place, and time. No focal or motor deficits. SKIN: Normal dry, normal in color. IMAGING STUDIES: Chest films are unremarkable. LABORATORY DATA: Sodium 135, potassium 4.1. Troponin x3 as listed above. BNP is 46. All other labs are unremarkable. ASSESSMENT AND PLAN: 1. Chest pain. We will order a stress test. Troponins x3, two of which were in the indeterminate range. Last one was undetectable. Lipids were checked in October of this year. Triglycerides at that time 193. She is on a statin. We will continue this. 2. Hypertension. We will restart home medication. 3. Syndrome of inappropriate antidiuretic hormone secretion. We will fluid restrict to 1200 mL per day. Add strict I's and O's. 4. Hyperlipidemia. We will restart home medication. 5. Depression. We will restart home medication. 6. Deep venous thrombosis and gastrointestinal prophylaxis will be started. 7. Hospital course will be dependent on clinical findings. Case discussed with Dr. Hurtado who agrees with plan. Job ID: [id number]
[2019-04-10 05:28] LABS: #Eosinphils 0.2 thou/uL (0.0-0.7); #Lymphocytes 3.3 thou/uL (1.20-3.40); #Neutrophils 9.5 thou/uL (1.40-6.50); %Basophils 0.1 % (0.0-1.0); %Eosinophils 1.2 % (0.0-10.0); %Lymphocytes 23.4 % (21.0-51.0); %Monocytes 7.4 % (0.0-10.0); %Neutrophils 67.9 % (42.0-75.0); Hemoglobin 12.8 g/dL (12.0-16.0); Mean Corpuscular HGB CONC 32.7 g/dL (32.0-36.0); Mean Corpuscular Hemoglobin 28.1 pg (27.0-31.0); Mean Platelet Volume 6.8 fL (7.4-10.4); Platelet Count 260 thou/uL (130-400); RBC Distribution Width 13.6 % (11.5-14.5); Red Blood Cell (RBC) Count 4.56 mill/uL (4.20-5.40)
[2019-04-10 05:48] LABS: ALT (SGPT) 24 U/L (8-55); AST (SGOT) 13 U/L (5-34); Albumin 3.7 g/dL (3.4-4.8); Alkaline Phosphatase 60 U/L (40-150); Anion Gap 13 mmol/L (10-20); BUN (Urea Nitrogen) 20 mg/dL (9.8-20.1); Bilirubin, Total 0.4 mg/dL (0.2-1.2); Calc. Creatinine Clearance 85 mL/min (70-130); Calcium 8.7 mg/dL (7.8-10.44); Carbon Dioxide 29 mmol/L (23-31); Chloride 97 mmol/L (98-107); Estimated GFR-MDRD 70; Globulin 2.4 g/dL (2.4-3.5); Glucose 91 mg/dL (83-110); Potassium 3.9 mmol/L (3.5-5.1); Protein, Total 6.1 g/dL (6.0-8.3); Sodium 135 mmol/L (136-145)
[2019-04-10] MEDS ORDERED: Escitalopram Oxalate 10 mg Tablet PO SCH (09:00)
[2019-04-10] MEDS ORDERED: Atorvastatin Calcium 20 MG TAB PO SCH (09:00)
[2019-04-10] MEDS ORDERED: Aspirin 81 mg Enteric Coated Tablet PO SCH (09:00)
[2019-04-10] MEDS ORDERED: Enoxaparin Sodium 40 MG/0.4 ML SYRINGE SC SCH ×2 (09:00)
[2019-04-10] MEDS ORDERED: Lisinopril 20 MG TAB PO SCH (09:00)
[2019-04-10] MEDS ORDERED: Regadenoson 0.4 MG/5 ML SYRINGE ONE (11:11)
--- NOTE | 2019-04-10 12:24 | NM ---
NM Cardiac Stress W EF WF History: Chest pain Comparison: Nuclear medicine cardiac stress test 2013 Findings: Stress and rest performed after the intravenous administration of 32 and 27 mCi technetium 99m sestamibi, respectively. No scar or ischemia. Normal wall motion. Calculated ejection fraction is 71%. Impression: Normal nuclear medicine cardiac stress test and ejection fraction.
[2019-04-10 12:34] VITALS: BP 119/56; TEMP 98.5
--- NOTE | 2019-04-10 22:40 | DIS ---
DATE OF ADMISSION: 04/09/2019 DATE OF DISCHARGE: 04/10/2019 DISCHARGE DIAGNOSES: 1. Chest pain, noncardiac. 2. Hypertension. 3. Syndrome of inappropriate antidiuretic hormone secretion. 4. Hyperlipidemia. 5. Depression. CONSULTATIONS: None. PROCEDURES: Cardiac stress test which showed normal nuclear medicine cardiac stress test, normal ejection fraction with no scar or ischemia and normal wall motion and no irreversible or reversible defect noted. LABORATORY DATA: WBC 14.0, RBC 4.56, hemoglobin 12.8, platelets 260. Sodium 135, potassium 3.9, anion gap 13, BUN 20, creatinine 0.80, estimated GFR is 70, glucose 91. Troponin 0.029, 0.031, 0.019. DIAGNOSTIC IMAGING: Portable chest x-ray showed no acute thoracic findings. HOSPITAL COURSE: Ms. Guerrero was a pleasant 74-year-old female who had presented to [facility] with chest pain that was worse with cough and deep breathing. She was admitted under observation for further workup of her symptoms. Portable chest x-ray was found to be negative. Cardiac enzymes were found to be normal x3. She also underwent a cardiac stress test which was also found to be normal. The patient's symptoms resolved during hospital course and she was seen and examined with family at bedside. She had denied any fever, chills, headache, blurred vision, dizziness, any further chest pain, palpitations, shortness of breath, nausea, or vomiting. She had reported that she felt back to her baseline. Blood pressure and other vital signs were found to be stable and O2 saturations found to be 95% on 1 L of oxygen via nasal cannula. She had remained afebrile and no sign of infection at this time. The patient's white count was found to be slightly elevated. However, this was noted to be likely secondary to her recent use of prednisone. She was instructed to follow up with her PCP upon discharge and also to take her home medications as directed, which included her home nebulizer treatments. She had verbalized understanding for this discharge plan and she stated that she did not need any refills on her home medications. DISCHARGE MEDICATIONS: 1. Aspirin 81 mg daily. 2. Atorvastatin 20 mg oral daily. 3. Lexapro 10 mg oral daily. 4. Nexium 40 mg p.o. daily. 5. Lisinopril 20 mg oral daily. 6. Anoro 62.5 mcg/25 mcg one inhalation daily. 7. Nebulizer treatments q.6 hours as needed for shortness of breath or wheezing. FOLLOWUP: The patient was instructed to follow up with her PCP, Dr. Yina Barillas in 1 week. CONDITION ON DISCHARGE: Stable. ACTIVITY: As tolerated. DIET: Heart healthy. DISPOSITION: Home on 04/10/2019. Job ID: [id number]
--- NOTE | 2019-04-14 09:29 | EKG ---
Test Reason : Blood Pressure : / mmHG Vent. Rate : 089 BPM Atrial Rate : 089 BPM P-R Int : 114 ms QRS Dur : 084 ms QT Int : 344 ms P-R-T Axes : 016 -33 082 degrees QTc Int : 418 ms Normal sinus rhythm Left axis deviation Moderate voltage criteria for LVH, may be normal variant Abnormal ECG Confirmed by JOSH GUTIÉRREZ, MARIA ESTHER ([id number]), acquisitions editor NOBLE RODGERS ([id number]) on 04/14/2019 9:29:24 AM Referred By: Confirmed By:MARIA ESTHER MORENO MD
== END 2019-04-10 13:25 | disposition home or self-care (01) ==
LOC: ERS 12:38 → 2SW 17:15
PROVIDERS: ADMIT Family Medicine; ATTEND Family Medicine
DX: R07.89 Other chest pain (principal); I10 Essential (primary) hypertension; E22.2 Syndrome of inappropriate secretion of antidiuretic hormone; E78.5 Hyperlipidemia, unspecified; F32.9 Major depressive disorder, single episode, unspecified; J44.9 Chronic obstructive pulmonary disease, unspecified; K21.9 Gastro-esophageal reflux disease without esophagitis; F17.210 Nicotine dependence, cigarettes, uncomplicated; Z79.82 Long term (current) use of aspirin; Z88.0 Allergy status to penicillin; Z88.5 Allergy status to narcotic agent; Z79.899 Other long term (current) drug therapy; Z98.890 Other specified postprocedural states
CPT/HCPCS: 78452; 80053; 84484; 85025; 93005; 93017; 94640 ×3; 99285; A9500; G0378 ×2; 36415; J2785; J7620